=== PATIENT | male | born 2000 | race African-American/Black ===

== ENCOUNTER 2020-03-06 14:22 | Emergency (ER) | payer SELFPAY ==
[~2020-03-06] VITALS: Ht 167.6 cm; Wt 80.0 kg
[2020-03-06 14:34] VITALS: BP 119/71
[2020-03-06] MEDS ORDERED: SODIUM CHLORIDE 0.9% 1,000 ML IV ONE (15:15)
[2020-03-06] MEDS ORDERED: ONDANSETRON HCL 4MG/2ML INJ IM ONE (15:15)
[2020-03-06 15:30] LABS: BASOPHILS % 0.7 % (0.0-2.0); EOSINOPHILS % 2.1 % (0.0-5.0); HEMATOCRIT. 47.4 % (42.0-52.0); HEMOGLOBIN. 16.3 g/dL (14.0-18.0); MEAN CORPUSCULAR HEMOGLOBIN 29.9 pg (28.0-32.0); MEAN CORPUSCULAR VOLUME 87.1 fL (80.0-94.0); MEAN PLATELET VOLUME 8.4 fl (7.4-10.4); MONOCYTES % 7.8 % (2.0-8.0); NEUTROPHILS % 60.4 % (40.0-76.0); PLATELET 245 x1000/uL (130-400); RED BLOOD CELL COUNT 5.44 mill/uL (4.7-6.1)
[2020-03-06 15:33] LABS: CHLORIDE 103 mEq/L (98-107)
== END 2020-03-06 18:18 | disposition home or self-care (01) ==
LOC: ER 14:49
DX: B34.9 Viral infection, unspecified (principal); E86.0 Dehydration; E86.1 Hypovolemia
CPT/HCPCS: 36415; 80048; 85025; 96360; 96372; 99283; J2405; J7030